=== PATIENT | female | born 1975 | race African-American/Black ===

== ENCOUNTER 2018-12-21 23:26 | Emergency (ER) | payer OTHER ==
--- NOTE | 2018-12-22 00:38 | RADIOLOGY REPORT (SQ) ---
3 VIEWS OF LEFT SHOULDER EXAM DATE: 12/21/2018 12:00 AM CDT HISTORY: Shoulder pain. COMPARISON: None. FINDINGS: No acute fracture or dislocation is seen. The joint spaces are preserved. The soft tissues are unremarkable. IMPRESSION: No acute findings.
[2018-12-22] MEDS ORDERED: NAPROXEN 250 MG TABLET PO ONE (02:54)
[2018-12-22] MEDS ORDERED: DIAZEPAM INJ 10 MG/2 ML DISP.SYRIN IM ONE (02:54)
--- NOTE | 2018-12-22 02:54 | ER Document Report ---
HPI - HPI Patient complains to provider of: left shoulder pain Time Seen by Provider: 12/22/18 02:43 Pain Level: 3 Context: Patient is a 43 year old female that comes to the emergency department for chief complaint of left shoulder pain. 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 It hurts when she turns her head to the left. It hurts over the back of her shoulder at the top. She denies weakness or numbness in the left arm, pain in her chest, shortness of breath, focal numbness or weakness, fever/chills, incontinence, or specific injury. - REPRODUCTIVE Reproductive: DENIES: : - MUSCULOSKELETAL Musculoskeletal: REPORTS: Extremity pain Past Medical History - General Information source: Patient - Social History Smoking Status: Never Smoker Frequency of alcohol use: None Drug Abuse: None Lives with: Family Family History: Reviewed & Not Pertinent Patient has suicidal ideation: No Patient has homicidal ideation: No Renal/ Medical History: Denies: Hx Peritoneal Dialysis - Immunizations Immunizations up to date: Yes Hx Diphtheria, Pertussis, Tetanus Vaccination: Yes Vertical Provider Document - CONSTITUTIONAL General Appearance: WD/WN, Mild Distress - Patient somewhat uncomfortable in appearance, uncomfortable with movement with some wincing - INFECTION CONTROL TRAVEL OUTSIDE OF THE [place] IN LAST 30 DAYS: No - HEENT HEENT: Atraumatic, Normal ENT Exam, Normocephalic - NECK Neck: Normal Inspection - RESPIRATORY Respiratory: Breath Sounds Normal, No Respiratory Distress - CARDIOVASCULAR Cardiovascular: Regular Rate, Regular Rhythm - GI/ABDOMEN Gastrointestinal: Abdomen Soft, Abdomen Non-Tender - BACK Back: negative: Normal Inspection - Palpable painful muscle fibers of the left trapezius and paracervical muscles, no midline cervical, thoracic, or lumbar tenderness, normal strength of all extremities, normal distal neurovascular exam of all extremities. Pain with range of motion of the shoulder especially with abduction and with turning the head to the left. Course - Re-evaluation Re-evalutation: Patient with very specific pain over the left shoulder with palpable muscle spasm in the muscle fibers of the trapezius muscle. Pain with range of motion. No chest pain, shortness of breath, headache, or other concerning symptoms reported. No neurological deficits. Because of patient's obvious muscle spasm she will be treated with muscle relaxers which are slightly stronger, discussed precautions with the use of diazepam. Discussed expectations, follow-up, and return precautions. Patient states understanding and agreement. - Vital Signs Vital signs: Temp Pulse Resp BP Pulse Ox 97.9 F 73 20 132/83 H 100 12/21/18 23:49 12/21/18 23:49 12/21/18 23:49 12/21/18 23:49 12/21/18 23:49 Discharge - Discharge Clinical Impression: Left shoulder pain Qualifiers: Chronicity: acute Qualified Code(s): M25.512 - Pain in left shoulder Condition: Stable Disposition: HOME, SELF-CARE Additional Instructions: The x-ray of the shoulder is normal. Your examination indicates muscle spasm of the trapezius muscle and paracervical muscle, this is not appear to be the rotator cuff. I recommend that you take the prescribed diazepam as a muscle relaxer (use with caution, avoid drinking alcohol, driving, or mixing with other sedating medication). Apply heat to the area, take the anti-inflammatory, do gentle massage and stretches. Avoid heavy lifting or twisting until you improve. Follow-up with primary care for additional management. Return for any concerning symptoms including numbness, swelling, redness, fever, or any other concerning symptoms. Prescriptions: Naproxen 500 mg PO BID PRN #20 tablet PRN Reason: Diazepam [Valium 5 mg Tablet] 1 - 2 tab PO TID PRN #15 tablet PRN Reason: Forms: Return to Work Referrals: ANTON WESTON MD [Primary Care Provider] - Follow up as needed
[2018-12-22 03:12] VITALS: BP 143/85
== END 2018-12-22 03:12 | disposition home or self-care (01) ==
LOC: ER 23:26
DX: M25.512 Pain in left shoulder (principal)
CPT/HCPCS: 99283; 96372; 73030; J3360

== ENCOUNTER → 2019-02-27 | Outpatient (CLI) | payer OTHER ==
--- NOTE | 2019-02-27 16:38 | RADIOLOGY REPORT (SQ) ---
EXAM DESCRIPTION: MRI LT UPPER JOINT WITHOUT COMPLETED DATE/TIME: 02/27/2019 4:08 pm REASON FOR STUDY: (M25.512)PAIN IN LEFT SHOULDER M25.512 PAIN IN LEFT SHOULDER COMPARISON: Left shoulder plain films 12/22/2018 TECHNIQUE: Non arthrogram left shoulder images acquired and stored on PACS. Multiplanar imaging to i nclude fat sensitive sequences such as T1, water sensitive sequences such as FST2/STIR, cartilage sen sitive sequences such as FSPD/gradient-echo sequences. LIMITATIONS: None. FINDINGS: BONE MARROW AND CORTEX: No worrisome bone lesions or marrow replacement. No occult fractur es. JOINT OR BURSAL EFFUSION: Hemorrhagic glenohumeral joint fluid. Trace fluid in the subacromial/subde ltoid bursa GLENO-HUMERAL ARTICULATION: Normal articulation. No subluxation. No cystic change. No osteophytes or cartilage loss. ACROMION AND AC JOINT: Type 2 acromion with moderate acromioclavicular joint hypertrophy on sagittal image 10 and coronal image 10. Mild bony spurring along the undersurface of the acromion on coronal image 10 narrowing the subacromial space. Trace fluid in the subacromial/subdeltoid bursa. ROTATOR CUFF AND INTERVAL: No significant tear or signal alteration. No cuff muscle atrophy. Mild i ncreased intrinsic signal along the distal supra and infraspinatus tendons from tendinopathy. No rotator interval tear. No rotator interval thickening to suggest adhesive capsulitis. LABRUM AND BICEPS LABRAL COMPLEX: Intact. No labral tear. Intra-articular long-head biceps tendon n ormal. Distal biceps in normal location in bicipital groove. REMAINDER OF LABRUM AND IGHL : No gross tear or paralabral cyst formation. Labral evaluation is less than optimal without joint distention. No thickening of IGHL to suggest adhesive capsulitis. PERIARTICULAR AND ADJACENT SOFT TISSUES: No masses or abnormal nodes. OTHER: No other significant finding. IMPRESSION: Mild narrowing of the subacromial space related to undersurface acromion spurring. Trac e fluid in the subacromial/subdeltoid bursa with mild distal supra and infraspinatus tendinopathy. N o full-thickness rotator cuff tendon tear TECHNICAL DOCUMENTATION: JOB ID: [id number] [employer]- All Rights Reserved Reading location - IP/workstation name: [facility]
== END ==
LOC: RAD 15:04
PROVIDERS: ATTEND Clinical Nurse Specialist Adult Health
DX: M25.512 Pain in left shoulder (principal)